=== PATIENT | female | born 1995 | race Two or more races ===

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

== ENCOUNTER → 2017-04-24 | Outpatient (CLI) | payer MEDICAID ==
[2017-04-24 10:24] LABS: Basophils # (auto) 0 uL; Basophils % (auto) 0.5 % (0.0-2.0); Eosinophils # (auto) 0 uL; Eosinophils % (auto) 0.6 % (0.0-7.0); Hematocrit 35.1 % (36.0-46.0); Hemoglobin 11.9 g/dL (12.2-16.2); Lymphocytes # (auto) 1.8 uL; Lymphocytes % (auto) 22.7 % (10.0-50.0); Mean Corpuscular Hemoglobin 29.1 pg (28.0-32.0); Mean Corpuscular Volume 85.5 fL (80.0-100.0); Mean Platelet Volume 9.6 fL (6.9-10.8); Monocytes # (auto) 0.5 uL; Monocytes % (auto) 6.1 % (0.0-12.0); Neutrophils # (auto) 5.6 uL; Neutrophils % (auto) 70.1 % (37.0-80.0); Nucleated Red Blood Cells % 0.1 %; Platelet Count (auto) 195 10^3/uL (140-450); Red Cell Distribution Width 14.1 % (11.8-14.3); White Blood Cell 7.9 10^3/uL (4.4-10.8)
== END | disposition home or self-care (01) ==
LOC: LAB 09:50
PROVIDERS: ATTEND Obstetrics & Gynecology
DX: Z34.80 Encounter for supervision of other normal pregnancy, unspecified trimester (principal); Z20.2 Contact with and (suspected) exposure to infections with a predominantly sexual mode of transmission; Z3A.00 Weeks of gestation of pregnancy not specified
CPT/HCPCS: 36415; 80307; 83036; 84144; 84702; 85025; 86703; 86762; 86850; 86900; 86901; 87086; 87340

== ENCOUNTER → 2017-07-11 | Outpatient (CLI) | payer MEDICAID ==
[2017-07-11 08:35] LABS: Hematocrit 36.5 % (36.0-46.0); Hemoglobin 12.4 g/dL (12.2-16.2); Mean Corpuscular Hemoglobin 29.9 pg (28.0-32.0); Mean Corpuscular Hgb Conc. 33.9 g/dL (32.0-36.0); Mean Corpuscular Volume 88.3 fL (80.0-100.0); Platelet Count (auto) 176 10^3/uL (140-450); Red Blood Cells 4.13 10^6/uL (4.0-5.20); Red Cell Distribution Width 14.2 % (11.8-14.3); White Blood Cell 8.3 10^3/uL (4.4-10.8)
[2017-07-11 09:35] LABS: Basophils % (manual) 0 (0.0-2.0); Blast Cells 0; Metamyelocytes % 0; Myelocytes % 0; Promyelocytes % 0; Reactive Lymphocytes 0
[2017-07-11 10:56] LABS: Lymphocytes % (manual) 14 (10.0-50.0); Monocytes % (manual) 14 (0-12)
[2017-07-11 10:57] LABS: Band Neutrophils % (manual) 0; Eosinophils % (manual) 3 (0-7)
== END | disposition home or self-care (01) ==
LOC: LAB 08:17
PROVIDERS: ATTEND Obstetrics & Gynecology
DX: O99.810 Abnormal glucose complicating pregnancy (principal); Z3A.00 Weeks of gestation of pregnancy not specified
CPT/HCPCS: 36415; 82951; 85007; 85027

== ENCOUNTER 2017-07-15 17:16 | Emergency (ER) | payer MEDICAID ==
[2017-07-15 17:20] VITALS: BP 95/68
[2017-07-15] MEDS ORDERED: ACETAMINOPHEN 500 MG TAB PO ONE (23:00)
== END 2017-07-15 23:05 | disposition home or self-care (01) ==
LOC: EDSTATUS 17:16 → ER 17:20
DX: O26.893 Other specified pregnancy related conditions, third trimester (principal); M53.3 Sacrococcygeal disorders, not elsewhere classified; M54.5 Low back pain; Z3A.28 28 weeks gestation of pregnancy
CPT/HCPCS: 59025; 81002

== ENCOUNTER → 2018-08-14 | Outpatient (CLI) | payer MEDICAID ==
[2018-08-14 15:08] LABS: Basophils # (auto) 0 uL; Basophils % (auto) 0.4 % (0.0-2.0); Eosinophils # (auto) 0 uL; Eosinophils % (auto) 0.3 % (0.0-7.0); Hematocrit 37.7 % (36.0-46.0); Hemoglobin 12.6 g/dL (12.2-16.2); Lymphocytes # (auto) 1.8 uL; Lymphocytes % (auto) 21.9 % (10.0-50.0); Mean Corpuscular Hemoglobin 28.7 pg (28.0-32.0); Mean Corpuscular Hgb Conc. 33.5 g/dL (32.0-36.0); Mean Corpuscular Volume 85.5 fL (80.0-100.0); Monocytes # (auto) 0.5 uL; Monocytes % (auto) 5.8 % (0.0-12.0); Neutrophils # (auto) 5.9 uL; Neutrophils % (auto) 71.6 % (37.0-80.0); Nucleated Red Blood Cells % 0.1 %; Platelet Count (auto) 212 10^3/uL (140-450); Red Cell Distribution Width 13.8 % (11.8-14.3); White Blood Cell 8.3 10^3/uL (4.4-10.8)
[2018-08-14 15:31] LABS: Alcohol, Urine < 3.0 mg/dL (0-5); Amphetamine Screen, Urine NEGATIVE (NEGATIVE); Barbiturate Scree,Urine NEGATIVE (NEGATIVE); Benzodiazephine Screen, Urine NEGATIVE (NEGATIVE); Cannabinoid Screen, Urine NEGATIVE (NEGATIVE); Cocaine Screen, Urine NEGATIVE (NEGATIVE); Opiate Scree,Urine NEGATIVE (NEGATIVE); Phencyclidine Screen, Urine NEGATIVE (NEGATIVE)
== END | disposition home or self-care (01) ==
LOC: LAB 14:20
PROVIDERS: ATTEND Obstetrics & Gynecology
DX: Z34.82 Encounter for supervision of other normal pregnancy, second trimester (principal); Z3A.14 14 weeks gestation of pregnancy
CPT/HCPCS: 36415; 80307; 83036; 84702; 85025; 86703; 86762; 86850; 86900; 86901; 87086; 87340; 87591

== ENCOUNTER → 2018-12-23 | Outpatient (CLI) | payer MEDICAID ==
[2018-12-23 09:08] LABS: Basophils # (auto) 0 uL; Basophils % (auto) 0.5 % (0.0-2.0); Eosinophils # (auto) 0.1 uL; Eosinophils % (auto) 1.1 % (0.0-7.0); Hematocrit 36.6 % (36.0-46.0); Hemoglobin 12.3 g/dL (12.2-16.2); Lymphocytes # (auto) 2.3 uL; Lymphocytes % (auto) 29.7 % (10.0-50.0); Mean Corpuscular Hemoglobin 29.6 pg (28.0-32.0); Mean Corpuscular Hgb Conc. 33.7 g/dL (32.0-36.0); Mean Corpuscular Volume 87.7 fL (80.0-100.0); Monocytes # (auto) 0.6 uL; Monocytes % (auto) 8.2 % (0.0-12.0); Neutrophils # (auto) 4.8 uL; Neutrophils % (auto) 60.5 % (37.0-80.0); Nucleated Red Blood Cells % 0.1 %; Platelet Count (auto) 161 10^3/uL (140-450); Red Blood Cells 4.17 10^6/uL (4.0-5.20); Red Cell Distribution Width 14.6 % (11.8-14.3); White Blood Cell 7.9 10^3/uL (4.4-10.8)
== END | disposition home or self-care (01) ==
LOC: LAB 08:32
PROVIDERS: ATTEND Obstetrics & Gynecology
DX: O99.810 Abnormal glucose complicating pregnancy (principal); Z3A.27 27 weeks gestation of pregnancy
CPT/HCPCS: 36415; 82951; 85025

== ENCOUNTER 2019-02-13 22:09 | Inpatient (IN) | payer MEDICAID ==
[~2019-02-13] VITALS: Ht 167.6 cm; Wt 82.6 kg
[2019-02-13] MEDS ORDERED: LACT. RINGERS/OXYTOCIN 20UNITS 1,000 ML IV SCH (22:50)
[2019-02-13] MEDS ORDERED: WITCH HAZEL-GLYCERIN PAD TOP PRN (23:00)
[2019-02-13] MEDS ORDERED: LIDOCAINE 2%HCL (LOCAL ANESTH.) INJ 20ML MDV ID ONE (23:00)
[2019-02-13] MEDS ORDERED: DERMOPLAST 60ML BOTTLE TOP PRN (23:00)
[2019-02-13] MEDS ORDERED: METHYLERGONOVINE MALEATE 0.2 MG/ML AMP IM PRN (23:00)
[2019-02-13] MEDS ORDERED: PHISODERM TOP SOLN 240ML BTL TOP PRN (23:00)
[2019-02-13] MEDS ORDERED: NALBUPHINE HCL 10 MG/1ml INJECTION IV PRN (23:00)
[2019-02-13 23:17] LABS: Basophils # (auto) 0 uL; Basophils % (auto) 0.5 % (0.0-2.0); Eosinophils # (auto) 0.1 uL; Eosinophils % (auto) 0.6 % (0.0-7.0); Hematocrit 36.1 % (36.0-46.0); Hemoglobin 12.2 g/dL (12.2-16.2); Lymphocytes # (auto) 2.3 uL; Lymphocytes % (auto) 22.8 % (10.0-50.0); Mean Corpuscular Hemoglobin 29.6 pg (28.0-32.0); Mean Corpuscular Hgb Conc. 33.8 g/dL (32.0-36.0); Mean Corpuscular Volume 87.6 fL (80.0-100.0); Neutrophils # (auto) 6.6 uL; Neutrophils % (auto) 66.1 % (37.0-80.0); Nucleated Red Blood Cells % 0.1 %; Platelet Count (auto) 163 10^3/uL (140-450); Red Blood Cells 4.11 10^6/uL (4.0-5.20); Red Cell Distribution Width 14.2 % (11.8-14.3); White Blood Cell 9.9 10^3/uL (4.4-10.8)
[2019-02-13 23:32] LABS: INR < 0.93 (0.9-1.15); Partial Thromboplastin Time 30.2 sec (23.64-32.05)
[2019-02-13 23:36] LABS: Calcium 8.3 mg/dL (8.5-10.1); Potassium 3.7 mmol/L (3.5-5.1)
[2019-02-13 23:42] LABS: Albumin 2.8 g/dL (3.4-5.0); BUN/Creatinine Ratio 26.4; Bilirubin, Total 0.2 mg/dL (0.2-1.0); Total Protein 6.7 g/dL (6.4-8.2)
[2019-02-14 00:18] LABS: Alcohol, Urine < 3.0 mg/dL (0-5); Amphetamine Screen, Urine NEGATIVE (NEGATIVE); Barbiturate Scree,Urine NEGATIVE (NEGATIVE); Benzodiazephine Screen, Urine NEGATIVE (NEGATIVE); Cannabinoid Screen, Urine NEGATIVE (NEGATIVE); Cocaine Screen, Urine NEGATIVE (NEGATIVE); Opiate Scree,Urine NEGATIVE (NEGATIVE); Phencyclidine Screen, Urine NEGATIVE (NEGATIVE)
[2019-02-14 00:45] LABS: Urine Bacteria FEW /hpf (None Seen); Urine Blood Negative /uL (Negative); Urine Specific Gravity 1.006 (1.001-1.035); Urine WBC 14 /hpf (0 - 5)
[2019-02-14] MEDS ORDERED: PROMETHAZINE HCL 25 MG/ML 1ML IV PRN (06:45)
[2019-02-14] MEDS ORDERED: LACTATED RINGER'S 1,000 ML IV SCH (06:45)
[2019-02-14] MEDS ORDERED: ACETAMINOPHEN 325 MG TAB PO PRN (08:15)
[2019-02-14] MEDS ORDERED: NALBUPHINE HCL 10 MG/1ml INJECTION IV PRN (08:30)
[2019-02-14] MEDS: IBUPROFEN 600 MG TAB PO PRN ×2 (10:27→16:05)
--- NOTE | 2019-02-14 10:30 | NUR ---
Nice catheter dc'd Order to discontinue nice catheter. Nice dc'd with clean technique following deflation of balloon. Patient tolerated well with no complaints of pain. Continue care. Fundus firm 1 below umbilicus with Moderate bleeding noted.
--- NOTE | 2019-02-14 10:44 | NUR ---
Ambulation: Patient OOB with standby assistance by RN. Patient ambulated to bathroom with steady gait. Patient able to void without difficulty. [facility] teaching provided with returned demonstration by patient. Clean gown provided and bed linen changed. Patient ambulated back to bed with steady gait and no distress noted. 300 ML OF URINE NOTED
[2019-02-14] MEDS ORDERED: LACT. RINGERS/OXYTOCIN 20UNITS 500 ML IV ONE (10:54)
[2019-02-14 11:31] VITALS: BP 114/57
[2019-02-14 15:30] VITALS: BP 105/57
[2019-02-14 18:00] VITALS: BP 95/53
[2019-02-14 19:00] VITALS: BP 95/53
[2019-02-14 23:00] VITALS: BP 97/50
[2019-02-15 03:02] VITALS: BP 102/58
[2019-02-15 05:06] LABS: RPR Non Reactive (Non Reactive)
[2019-02-15 07:15] VITALS: BP 104/57
[2019-02-15 11:30] VITALS: BP 104/57
--- NOTE | 2019-02-15 12:20 | NUR ---
IV removal IV DC'd with clean sterile technique, catheter fully intact. Pressure dressing applied to site. Patient tolerated well.
--- NOTE | 2019-02-15 13:30 | NUR ---
Discharge: Discharge instructions given as ordered. Pt encouraged to follow up with [facility] as instructed. All questions and concerns addressed. Patient verbalized understanding. Medication reconciliation completed and copy given to patient. Patient encouraged to prepare to depart unit.
[2019-02-15 15:05] VITALS: BP 116/62
--- NOTE | 2019-02-15 15:10 | NUR ---
Discharge: Patient taken to vehicle ambulatory via steady gait, pt declined wheelchair with all personal belongings, accompanied by staff and family member. No distress noted at time of departure, no adverse changes in status since initial assessment.
== END 2019-02-15 15:10 | disposition home or self-care (01) | DRG 560 ==
LOC: LDRP 22:09
PROVIDERS: ADMIT Specialist; ATTEND Specialist
PROC: 10E0XZZ Delivery of Products of Conception, External Approach (ICD-10-PCS; principal; 2019-02-14)
DX: O48.0 Post-term pregnancy (principal); Z37.0 Single live birth; Z3A.40 40 weeks gestation of pregnancy
CPT/HCPCS: 36415; 51702; 59025; 59409; 80053; 80307; 81001; 81002; 84112; 85025; 85610; 85730; 86592; 86850; 86900; 86901; 96365; 96366; 96375; G0378; J2590